=== PATIENT | female | born 1980 | race Caucasian/White ===

== ENCOUNTER → 2020-01-14 | Outpatient (CLI) | payer OTHER ==
[~2020-01-14] MED LIST: IBIFON 600600 MG PO; LEVEMIR100 U/ML; NOVOLOG 100U100 U/M1; PERCOCET 325 MG1 TA2 PO; PNV-SELECT1 TAB; PRENATAL1 TA1; VALTREX 50500 MG/TAB PO; VALTREX1 GM; ZOVIRAX CREAM3 GM
== END ==
LOC: MC.RAD 08:58
DX: Z12.31 Encounter for screening mammogram for malignant neoplasm of breast (principal)

== ENCOUNTER → 2021-02-25 | Outpatient (CLI) | payer OTHER | LOC: MC.RAD 01-14 09:15 | DX: Z12.31 Encounter for screening mammogram for malignant neoplasm of breast (principal) ==

== ENCOUNTER → 2022-03-14 | Outpatient (CLI) | payer OTHER | LOC: MC.RAD 09:15 | DX: Z12.31 Encounter for screening mammogram for malignant neoplasm of breast (principal) ==

== ENCOUNTER → 2022-03-16 | Outpatient (CLI) | payer OTHER | LOC: MC.RAD 13:52 | DX: N60.01 Solitary cyst of right breast (principal) ==

== ENCOUNTER → 2024-08-14 | Outpatient (CLI) | payer OTHER | LOC: MC.RAD 10:38 | DX: Z12.31 Encounter for screening mammogram for malignant neoplasm of breast (principal) ==